=== PATIENT | male | born 1980 | race Caucasian/White ===

== ENCOUNTER 2016-10-19 11:55 | Day surgery (SDC) | payer OTHER ==
[~2016-10-19 11:55] MED LIST: RINGER'S SOLUTION,LACTATED 1,000 ML IV PRN; ceFAZolin SODIUM 1 GM VIAL IV PRN
--- NOTE | 2016-10-19 13:42 | OR ---
Anesthesia Procedure Note - Anesthesia Procedure Note Date of Service: 10/19/16 Narrative: Vital Signs - Last Taken Temp 36.8 C 10/19/16 13:25 Pulse 96 10/19/16 13:30 Resp 22 H 10/19/16 13:30 BP 181/95 10/19/16 13:30 Pulse Ox 97 10/19/16 13:30 O2 Oxygen Delivery Method Room Air 10/19/16 13:37 ANESTHESIA PROCEDURE NOTE Date of Procedure: 10/19/2016. Time of procedure: 1215. Performed by: Jamil Swanson CRNA Health Education Aide: None. Preprocedure diagnosis: Right shoulder pain, impingement. Post procedure diagnosis: Same. Procedure: Right ultrasound guided interacalene nerve block for postoperative analgesia. Indications: The patient is a 36 -year-old male. Findings: See below. Details of the procedure: The tissue over the intended target site was cleansed with ChloraPrep. 1 ml Lidocaine 1 % was infiltrated to the skin and subcutaneous tissue. Under sterile technique and ultrasound guidance a 21-gauge block needle was inserted to the right braclial plexus nerve bundle between the anterior scalene and the middle scalene muscles. 40 mL's of 0.5% bupivacaine plus epinephrine 1 200,000 was injected after negative aspiration for blood. Spread of local anesthetic around the brachial plexus was observed throughout the injection with ultrasound. The needle was removed intact. No complications were noted. The images were retained in the Hospital medical database . EBL: Minimal. Fluids: N/A. Specimen: N/A. Post procedure condition: The patient tolerated the procedure well. No complications were noted. Thank you for this consultation. Jamil Swanson CRNA
--- NOTE | 2016-10-19 14:48 | OR ---
Operative Report - Dictated Report Narrative: Date: 10/19/2016 Physician: Rolly Escalante M.D. 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 Chin Is a 36 year-old gentleman who has been followed in my clinic with complaints of shoulder pain consistent with injury to his acromial clavicular joint related to his work duties. Physical exam and diagnostic imaging were consistent with his complaints and concern for acromial clavicular edema. Conservative measures have failed including, but not limited to, passage of time , activity modification, medications, physical therapy/home exercise program, or injections. The risks, benefits, and alternatives were discussed in clinic. The risks being , bleeding, infection, blood clots, nerve, tendon, ligament, blood vessel injury, persistent pain, arthrosis, stiffness, need for prolonged therapy, need for additional procedures, and persistent symptoms. Consent was obtained in the clinic. Procedure: After marking the correct extremity in the preoperative holding area, a timeout was performed in the operating room. IV antibiotics consisting of Ancef were administered prior to the procedure. A general followed by regional anesthetic was induced by the nurse can sorter per my request. This was in the supine position, then the patient was transitioned to a beachchair position with all bony prominences well-padded, head in neutral, the nonoperative arm well supported, and the legs padded with SCDs in place. The operative shoulder was then prepped and draped in a standard sterile fashion. Attention was then turned to the distal clavicle. A longitudinal incision was made over the acromioclavicular joint. This was sharply dissected down to the chromic clavicular capsule. Cautery was utilized for hemostasis. A longitudinal capsulotomy was made and elevated off the anterior posterior aspects of the distal clavicle. There is notable hypertrophic bone and loss of joint space between the acromion and clavicle. Protecting the surrounding soft tissues, an oscillating saw was utilized in order to resect approximately 7-10 mm of bone from the distal clavicle. The remaining clavicle was stable after removing this. The shoulders place a range of motion and showed no remaining impingement between the acromion and the clavicle. Wounds were then thoroughly irrigated. The capsule was closed with interrupted 0 Vicryl to subcutaneous tissue with 3-0 Vicryl. Skin was closed with 4-0 nylon. Dressings consisting of Xeroform, 4 x 4, and tape were applied. All sponge, needle, blade, and instrument counts were correct prior to closing the wounds. The patient was awoken and transferred to the postanesthesia care unit in stable condition.
[2016-10-19 14:49] VITALS: BP 173/98
== END 2016-10-19 11:56 | disposition home or self-care (01) ==
LOC: AMB 11:55
PROVIDERS: ATTEND Orthopaedic Surgery
PROC: 3E0T3BZ Introduction of Anesthetic Agent into Peripheral Nerves and Plexi, Percutaneous Approach (ICD-10-PCS; 2016-10-19)
PROC: 0PB90ZZ Excision of Right Clavicle, Open Approach (ICD-10-PCS; principal; 2016-10-19 13:45)
DX: M75.41 Impingement syndrome of right shoulder (principal); M89.512 Osteolysis, left shoulder; I10 Essential (primary) hypertension; E78.00 Pure hypercholesterolemia, unspecified; K21.9 Gastro-esophageal reflux disease without esophagitis; F41.9 Anxiety disorder, unspecified; F17.200 Nicotine dependence, unspecified, uncomplicated; Z68.32 Body mass index [BMI] 32.0-32.9, adult